=== PATIENT | male | born 1970 | race Caucasian/White ===

== ENCOUNTER 2017-01-15 06:59 | Day surgery (SDC) | payer OTHER ==
[~2017-01-15] VITALS: Ht 177.8 cm; Wt 82.0 kg
[2017-01-15] VITALS (12 sets, daily range): BP systolic 126–147; BP diastolic 83–94; PULSE 66–83; RESP 8–20; Ht 177.8 cm; Wt 82.0 kg
--- NOTE | 2017-01-15 07:21 | HPN ---
Date/Time of Note Date/Time of Note DATE: 01/15/17 TIME: 07:20 Interval H&P Admission Note Pt. seen H&P reviewed: No system changes WILLIE OQUENDO MD Jan 15, 2017 07:21
[2017-01-15] MEDS ORDERED: GLYCOPYRROLATE 0.4 MG INJ ONE (08:12)
[2017-01-15] MEDS ORDERED: DEXAMETHASONE 4 MG/ML 1 ML INJ ONE (08:13)
[2017-01-15] MEDS ORDERED: CEFAZOLIN 1 GM INJ ONE (08:13)
[2017-01-15] MEDS ORDERED: NEOSTIGMINE 3 MG/3 ML SYRINGE ONE (08:13)
[2017-01-15] MEDS ORDERED: MIDAZOLAM 1 MG/ML 2 ML INJ ONE (08:13)
[2017-01-15] MEDS ORDERED: ROCURONIUM 50 MG INJ ONE (08:13)
[2017-01-15] MEDS ORDERED: ONDANSETRON 4 MG INJ ONE (08:13)
[2017-01-15] MEDS ORDERED: FENTAnyl 50 MCG/ML VIAL ONE ×2 (08:13→09:31)
[2017-01-15] MEDS ORDERED: PROPOFOL 20 ML ONE (08:13)
[2017-01-15] MEDS ORDERED: BUPIVACAINE 0.5%/EPI (SDV) 30 ML INJ INJ ONE (09:00)
[2017-01-15] MEDS ORDERED: POLYMYXIN/BACITRACIN 1L IRRIG IRR ONE (09:00)
[2017-01-15] MEDS ORDERED: BUPIVACAINE 0.5%/EPI (SDV) 30 ML INJ ONE (09:02)
[2017-01-15] MEDS ORDERED: POLYMYXIN/BACITRACIN 1L IRRIG ONE (09:02)
[2017-01-15] MEDS ORDERED: BUPIVACAINE 0.25% (MPF) 30 ML INJ ONE (09:25)
[2017-01-15] MEDS ORDERED: EPHEDrine SULFATE 50 MG/5 ML SYG IV PRN (09:30)
[2017-01-15] MEDS ORDERED: MEPERIDINE 25 MG INJ IV PRN (09:30)
[2017-01-15] MEDS ORDERED: HYDROmorphONE (0.2 MG/ML) 10ML SYG IV PRN ×3 (09:30)
[2017-01-15] MEDS ORDERED: TRIMETHOBENZAMIDE 100 MG/ML VIAL IM PRN (09:30)
[2017-01-15] MEDS ORDERED: FENTAnyl 50 MCG/ML VIAL IV PRN ×3 (09:30)
[2017-01-15] MEDS ORDERED: DIPHENHYDRAMINE 50 MG INJ IV PRN (09:30)
[2017-01-15] MEDS ORDERED: ONDANSETRON 4 MG INJ IV PRN ×2 (09:30→10:30)
[2017-01-15] MEDS ORDERED: OXYCODONE/ACETAMINOPHEN (5/325) TAB PO PRN ×4 (09:30→10:30)
[2017-01-15] MEDS ORDERED: MIDAZOLAM 1 MG/ML 2 ML INJ IV PRN (09:30)
[2017-01-15] MEDS ORDERED: IPRATROPIUM (NEB) 0.5 MG/2.5 ML AMP HHN PRN (09:30)
[2017-01-15] MEDS ORDERED: LABETALOL HCL 20MG INJ IV PRN (09:30)
[2017-01-15] MEDS ORDERED: hydrALAzine 20 MG INJ IV PRN (09:30)
[2017-01-15] MEDS ORDERED: ALBUTEROL 0.083% (NEB) 2.5 MG/3 ML AMP HHN PRN (09:30)
[2017-01-15] MEDS ORDERED: SUGAMMADEX SODIUM 200 MG/2 ML VIAL IV ONE (10:12)
--- NOTE | 2017-01-15 10:17 | OPR ---
Date/Time of Note Date/Time of Note DATE: 01/15/17 TIME: 10:10 Operative Report Procedure Date: Jan 15, 2017 Preoperative Diagnosis 1. Right inguinal hernia without obstruction 2. Rectal polyp Postoperative Diagnosis 1. Right inguinal hernia (indirect) 2. Rectal polyp predominantly prolapsed internal hemorrhoid disease (pathology pending) Operation/Procedure Performed 1. Repair right inguinal hernia with extra large plug 2. Rectal polypectomy 3. Right inguinal nerve block Surgeon Willie Oquendo MD Diffusion Operator None Anesthesia Type: general Anesthesiologist: Suresh Chaudhry M.D. Estimated Blood Loss: 0 - 10 ml's Transfusion none Specimen Rectal polyp Grafts/Implants Extra large Bard PerFix plug Tubes/Drains None Complications none Pt Condition Post Procedure: stable Disposition: PACU Indications Symptoms Procedure Description After satisfactory general anesthesia was achieved, the patient was placed in Bari stirrups and the perineum was prepped and draped. Examination under anesthesia revealed large circumferential external hemorrhoids. The rectal polyp was in fact a prolapsed large cluster of internal hemorrhoids. This prolapsed cluster was divided over an impact LigaSure. Hemostasis was total. The abdomen was then prepped and draped after the Bari stirrups were lowered. A 4 cm transverse suprapubic right groin incision was made and carried down to the level of the external oblique aponeurosis which was opened in the direction of its fibers. The cord and nerve were retracted. There was a large indirect sac which was dissected to its base at the internal ring. The sac was reduced. The reduction was maintained by placement of an extra-large plug secured circumferentially to healthy tissue with interrupted 3-0 Vicryl suture. Next the flat portion of the mesh was cut and fashioned to fit in the floor of the canal as an overlay. It was anchored at the pubic tubercle with 2-0 Novafil, laterally to inguinal ligament with interrupted 2-0 Novafil, and medially to conjoined tendon with interrupted 2-0 Novafil. The mesh distal to the cord was reconstituted with a single suture of 2-0 Novafil creating a new internal ring of appropriate size. Cord and nerve were then replaced beneath the external oblique which was closed with a running 3-0 Vicryl suture. Next the right inguinal nerve block was performed. 10 cc of 0.5% plain Marcaine were injected into the fascia 1 cm medial and inferior to the right anterior iliac spine. 10 more cc of local anesthetic were injected into the subcutaneous tissues. Essence 's fascia was closed with interrupted 3-0 Vicryl suture, and skin closed with subcuticular absorbable radha. Sponge and needle counts were reported as correct 2. WILLIE OQUENDO MD Jan 15, 2017 10:17
[2017-01-15] MEDS ORDERED: morphine 2 MG INJ IV PRN (10:30)
[2017-01-15] MEDS ORDERED: METOCLOPRAMIDE 10 MG INJ ONE (10:45)
[2017-01-15] MEDS ORDERED: METOCLOPRAMIDE 10 MG INJ IV PRN (11:00)
== END 2017-01-15 12:55 | disposition home or self-care (01) ==
LOC: SUR 06:59 → SDS 06:59 → SUR 12:55
PROVIDERS: ATTEND Surgery
DX: K40.90 Unilateral inguinal hernia, without obstruction or gangrene, not specified as recurrent (principal); K64.8 Other hemorrhoids; K64.4 Residual hemorrhoidal skin tags
CPT/HCPCS: 46255; 49505; 88305; C1781; J0690; J1100; J1170; J1200; J2175; J2250; J2405; J2765; J3010; Z7512; Z7610; J2710

== ENCOUNTER 2017-01-22 15:38 | Inpatient (IN) | payer OTHER ==
[~2017-01-22] VITALS: Ht 170.2 cm; Wt 79.0 kg
--- NOTE | 2017-01-22 16:50 | ERD ---
ER Documentation Chief Complaint Date/Time DATE: 01/22/17 TIME: 16:42 Chief Complaint rectal pain HPI This 46-year-old male patient presents to emergency department for evaluation of rectal pain. Patient reports that he had right hernia repair and polyp surgery 01/15/17, developed hemorrhoids with pain for the last 5 days, pt saw Dr Sarah Crocker [phone] today told to ED for admitting surgery tomorrow ROS All systems reviewed and are negative except as per history of present illness. Medications Home Meds No Active Prescriptions or Reported Meds Allergies Allergies: Coded Allergies: No Known Allergy (Unverified , 01/22/17) PMhx/Soc History of Surgery: Yes (CARDIAC STENT, RT INGUINAL HERNIA REPAIR, HEMORRHOIDECTOMY 01/15) Anesthesia Reaction: No Hx Neurological Disorder: No Hx Respiratory Disorders: No Hx Cardiac Disorders: Yes (HTN, CARDIAC STENT ) Hx Psychiatric Problems: No Hx Miscellaneous Medical Probl: No Hx Alcohol Use: No Hx Substance Use: No Hx Tobacco Use: Yes (10-12 CIG A DAY ) Smoking Status: Current every day smoker Physical Exam Vitals Vital Signs Date Time Temp Pulse Resp B/P Pulse Ox O2 Delivery O2 Flow Rate FiO2 01/22/17 15:43 98.4 84 19 120/81 98 Physical Exam Const: Well-nourished well-appearing well-hydrated Head: Atraumatic Eyes: Normal Conjunctiva ENT: Normal External Ears, Nose and Mouth. Neck: Full range of motion..~ No meningismus. Resp: Clear to auscultation bilaterally Cardio: Regular rate and rhythm, no murmurs Abd: Soft, non tender, non distended. Normal bowel sounds Skin: No petechiae or rashes Back: No midline or flank tenderness Ext: No cyanosis, or edema Neur: Awake and alert Psych: Normal Mood and Affect Result Diagram: 01/22/17 1700 01/22/17 1700 Results 24 hrs Laboratory Tests Test 01/22/17 17:00 01/22/17 18:40 White Blood Count 11.210^3/ul Red Blood Count 5.4110^6/ul Hemoglobin 16.3g/dl Hematocrit 47.1% Mean Corpuscular Volume 87.1fl Mean Corpuscular Hemoglobin 30.1pg Mean Corpuscular Hemoglobin Concent 34.6g/dl Red Cell Distribution Width 12.3% Platelet Count 80891^3/UL Mean Platelet Volume 10.5fl Neutrophils % 57.9% Lymphocytes % 31.6% Monocytes % 8.8% Eosinophils % 1.0% Basophils % 0.4% Nucleated Red Blood Cells % 0.0/100WBC Neutrophils # 6.510^3/ul Lymphocytes # 3.510^3/ul Monocytes # 1.010^3/ul Eosinophils # 0.110^3/ul Basophils # 0.110^3/ul Nucleated Red Blood Cells # 0.010^3/ul Sodium Level 140mmol/L Potassium Level 4.4mmol/L Chloride Level 103mmol/L Carbon Dioxide Level 24mmol/L Anion Gap 17 Blood Urea Nitrogen 9mg/dl Creatinine 1.03mg/dl Glucose Level 97mg/dl Calcium Level 10.2mg/dl Total Bilirubin 0.6mg/dl Direct Bilirubin 0.00mg/dl Indirect Bilirubin 0.6mg/dl Aspartate Amino Transf (AST/SGOT) 24IU/L Alanine Aminotransferase (ALT/SGPT) 31IU/L Alkaline Phosphatase 77IU/L Total Protein 8.1g/dl Albumin 4.6g/dl Globulin 3.50g/dl Albumin/Globulin Ratio 1.31 Lipase 87U/L Prothrombin Time 13.7Sec Prothrombin Time Ratio 1.1 INR International Normalized Ratio 1.05 Activated Partial Thromboplast Time 31.1Sec Current Medications Medications (Trade) Dose Ordered Sig/Sis Route PRN Reason Start Time Stop Time Status Last Admin Dose Admin Oxycodone/ Acetaminophen 1 tab 1 tab ONCE ONCE PO 01/22/17 17:00 01/22/17 17:55 DC Sodium Chloride (NS) 1,000 ml @ 1,000 mls/hr Q1H ONCE IV 01/22/17 17:30 01/22/17 18:29 DC 01/22/17 17:58 Lidocaine HCl ([place] 3.5% Gel Drops) 1 applic ONCE ONCE OPER 01/22/17 17:30 01/22/17 17:31 DC Morphine Sulfate (morphine) 4 mg ONCE STAT IV 01/22/17 17:54 01/22/17 17:55 DC 01/22/17 17:58 Ondansetron HCl (Zofran Inj) 4 mg ONCE STAT IV 01/22/17 17:54 01/22/17 17:55 DC 01/22/17 17:58 Ondansetron HCl (Zofran Inj) 4 mg STK-MED ONCE .ROUTE 01/22/17 17:56 01/22/17 17:57 DC Morphine Sulfate (morphine) 4 mg STK-MED ONCE .ROUTE 01/22/17 17:56 01/22/17 17:57 DC Interpretation text CBC shows no evidence of hemorrhage or infection Chemistry shows no evidence of significant electrolyte abnormalities or renal insufficiency Liver function tests shows no evidence of acute biliary or hepatic dysfunction Coagulation study showed no concerning coagulpathy Lipase shows no evidence of acute pancreatitis Procedures/MDM 46-year-old male patient presents to emergency department for admission, plan for hemorrhoidectomy tomorrow by Dr Sarah Crocker. Patient is status post a right inguinal hernia repair and polyp removal, polyp removal exacerbated hemorrhoid symptoms. Patient now has severe grade 4. Emergency room course today includes routine labs, IV with a liter of normal saline, pain control with a set, change to 4 of IV morphine with Zofran. Dr. Crocker called by myself to discuss case, have patient admitted by hospitalist, Dr. Crocker will consult, patient is on surgery schedule for tomorrow time unverified at this point. This case discussed with supervising physician Dr. Machado who puts in the ER physician. Patient remains in ED 2 for care and treatment until transfer to floor. 2229 pain controllable with 4 mg of IV morphine, patient transferred to [facility] bed, all care maintained. Departure Diagnosis: Primary Impression: Hemorrhoid prolapse ARBEN DICKSON Jan 22, 2017 16:50 (Xylocaine 2% Jelly) 1 applic ONCE ONCE TOP 01/22/17 20:30 01/22/17 20:31 DC 01/22/17 20:15 Interpretation text CBC shows no evidence of hemorrhage or infection Chemistry shows no evidence of significant electrolyte abnormalities or renal insufficiency Liver function tests shows no evidence of acute biliary or hepatic dysfunction Coagulation study showed no concerning coagulpathy Lipase shows no evidence of acute pancreatitis Procedures/MDM 46-year-old male patient presents to emergency department for admission, plan for hemorrhoidectomy tomorrow by Dr Sarah Crocker. Patient is status post a right inguinal hernia repair and polyp removal, polyp removal exacerbated hemorrhoid symptoms. Patient now has severe grade 4. Emergency room course today includes routine labs, IV with a liter of normal saline, pain control with a set, change to 4 of IV morphine with Zofran. Dr. Crocker called by myself to discuss case, have patient admitted by hospitalist, Dr. Crocker will consult, patient is on surgery schedule for tomorrow time unverified at this point. This case discussed with supervising physician Dr. Machado who puts in the ER physician. Patient remains in ED 2 for care and treatment until transfer to floor. Departure Diagnosis: Primary Impression: Hemorrhoid prolapse ARBEN DICKSON Jan 22, 2017 16:50
[2017-01-22] MEDS ORDERED: OXYCODONE/ACETAMINOPHEN (5/325) TAB PO ONE (17:00)
[2017-01-22 17:17] LABS: BASOPHIL # 0.1 10^3/ul (0.0-0.1); BASOPHILS % 0.4 % (0.0-2.0); EOSINOPHILS # 0.1 10^3/ul (0.0-0.5); HEMATOCRIT 47.1 % (42.0-52.0); HEMOGLOBIN 16.3 g/dl (14.0-18.0); LYMPHOCYTES # 3.5 10^3/ul (0.8-2.9); LYMPHOCYTES % 31.6 % (15.0-51.0); MEAN CORPUSCULAR HEMOGLOBIN 30.1 pg (29.0-33.0); MEAN CORPUSCULAR HGB CONC 34.6 g/dl (32.0-37.0); MEAN CORPUSCULAR VOLUME 87.1 fl (82.0-101.0); MEAN PLATELET VOLUME 10.5 fl (7.4-10.4); MONOCYTES % 8.8 % (0.0-11.0); NEUTROPHIL # 6.5 10^3/ul (1.6-7.5); NEUTROPHILS % 57.9 % (39.0-77.0); PLATELET COUNT 244 10^3/UL (140-415); RED BLOOD COUNT 5.41 10^6/ul (4.70-6.10); RED CELL DISTRIBUTION WIDTH 12.3 % (11.5-14.5); WHITE BLOOD COUNT 11.2 10^3/ul (4.8-10.8)
[2017-01-22] MEDS ORDERED: LIDOCAINE 3.5% GEL TUBE OPER ONE (17:30)
[2017-01-22] MEDS ORDERED: SOD CHLORIDE 0.9% 1,000 ML IV ONE (17:30)
[2017-01-22] MEDS ORDERED: morphine 4 MG/ML VIAL IV STA ×2 (17:54→20:04)
[2017-01-22] MEDS ORDERED: ONDANSETRON 4 MG INJ IV STA (17:54)
[2017-01-22 17:55] LABS: ALBUMIN 4.6 g/dl (3.3-4.9); ALBUMIN/GLOBULIN RATIO 1.31; BILIRUBIN,INDIRECT 0.6 mg/dl (0-1.1); BILIRUBIN,TOTAL 0.6 mg/dl (0.2-1.3); CALCIUM 10.2 mg/dl (8.4-10.2); CREATININE 1.03 mg/dl (0.61-1.24); POTASSIUM 4.4 mmol/L (3.5-5.1); TOTAL PROTEIN 8.1 g/dl (6.1-8.1)
[2017-01-22] MEDS ORDERED: ONDANSETRON 4 MG INJ ONE (17:56)
[2017-01-22] MEDS ORDERED: morphine 4 MG/ML VIAL ONE (17:56)
[2017-01-22 19:10] LABS: INR 1.05; PROTIME 13.7 Sec (12.2-14.2); PT RATIO 1.1
[2017-01-22 19:11] LABS: PARTIAL THROMBOPLASTIN TIME 31.1 Sec (25.0-35.0)
[2017-01-22] MEDS ORDERED: ACETAMINOPHEN 325 MG TAB PO PRN (20:00)
[2017-01-22] MEDS ORDERED: ONDANSETRON 4 MG INJ IV PRN (20:00)
[2017-01-22] MEDS ORDERED: DIBUCAINE 1% 30 GM OINT TOP ONE (20:00)
[2017-01-22] MEDS ORDERED: LIDOCAINE 2% JELLY 5 ML TOP ONE (20:30)
[2017-01-22 22:22] VITALS: TEMP 98
[2017-01-22] MEDS: morphine 4 MG/ML VIAL IV PRN (23:49)
[2017-01-22] MEDS: DEXTROSE 5%-0.45% NACL 1,000 ML IV SCH (23:49)
[2017-01-23] VITALS (18 sets, daily range): BP systolic 125–153; BP diastolic 70–94; PULSE 62–82; RESP 14–20; Ht 170.2 cm; Wt 79.0 kg
[2017-01-23] MEDS: morphine 4 MG/ML VIAL IV PRN ×5 (04:17→21:41)
--- NOTE | 2017-01-23 06:31 | HP ---
Date/Time of Note Date/Time of Note DATE: 01/23/17 TIME: 06:24 Assessment/Plan VTE Prophylaxis VTE Prophylaxis Intervention: SCD's Lines/Catheters IV Catheter Type (from Nrs): Peripheral IV Urinary Cath still in place: No Assessment/Plan Assessment/Plan 1. Rectal pain, most likely secondary to hemorrhoids -Awaiting surgical evaluation in-house -Pain management 2. Recent right inguinal hernia repair and Rectal polypectomy on 01/15/17 -This seems to be no complication 3. Mild leukocytosis -Likely reactive -Monitor for now HPI/ROS Admit Date/Time Admit Date/Time Jan 22, 2017 at 19:48 Hx of Present Illness This is a 46-year-old male who had Repair of right inguinal hernia and Rectal polypectomy on 01/15/[address] Crocker now he has been having rectal pain and hemorrhoids. He was sent by Dr. Crocker ER for evaluation and admission. He said he has been having rectal pain for the past 5 days. Denied chest pain, shortness of breath, fever, chills, nausea vomiting. PMH/Family/Social Social History Smoking Status: Current some day smoker Exam/Review of Systems Vital Signs Vitals Vital Signs Date Time Temp Pulse Resp B/P Pulse Ox O2 Delivery O2 Flow Rate FiO2 01/23/17 00:43 98.2 82 18 132/86 99 Room Air Intake and Output 01/22/17 01/22/17 01/23/17 15:00 23:00 07:00 Intake Total 600 ml Balance 600 ml Exam Constitutional: alert, oriented, well developed Head: atraumatic, normocephalic Eyes: EOMI, PERRL Respiratory: clear to auscultation, normal air movement Cardiovascular: nl pulses, regular rate and rhythm Gastrointestinal: soft, surgical scars Extremities: normal pulses Labs Result Diagram: 01/22/17 1700 01/22/17 1700 Medications Medications Current Medications Dextrose/Sodium Chloride (D5-1/2ns) 1,000 ml @ 100 mls/hr Q10H IV Last administered on 01/22/17 23:49; Admin Dose 100 MLS/HR; Start 01/22/17 at 23: 30; Stop 01/23/17 at 23:30 Morphine Sulfate (morphine) 4 mg Q4H PRN IV pain Last administered on 10/13/ 17at 04:17; Admin Dose 4 MG; Start 01/22/17 at 23:30; Stop 01/26/17 at 23:30 HERBERT BELLAMY MD Jan 23, 2017 06:31
[2017-01-23] MEDS ORDERED: PROPOFOL 200 MG INJ ONE (07:00)
[2017-01-23 07:11] LABS: BASOPHILS % 0.5 % (0.0-2.0); EOSINOPHILS # 0.2 10^3/ul (0.0-0.5); EOSINOPHILS % 1.9 % (0.0-7.0); HEMATOCRIT 43.2 % (42.0-52.0); HEMOGLOBIN 14.5 g/dl (14.0-18.0); LYMPHOCYTES # 2.8 10^3/ul (0.8-2.9); LYMPHOCYTES % 34.2 % (15.0-51.0); MEAN CORPUSCULAR HGB CONC 33.6 g/dl (32.0-37.0); MEAN CORPUSCULAR VOLUME 89.4 fl (82.0-101.0); MEAN PLATELET VOLUME 10.7 fl (7.4-10.4); MONOCYTE # 0.7 10^3/ul (0.3-0.9); MONOCYTES % 8.2 % (0.0-11.0); NEUTROPHIL # 4.5 10^3/ul (1.6-7.5); PLATELET COUNT 195 10^3/UL (140-415); RED BLOOD COUNT 4.83 10^6/ul (4.70-6.10); RED CELL DISTRIBUTION WIDTH 12.5 % (11.5-14.5); WHITE BLOOD COUNT 8.1 10^3/ul (4.8-10.8)
[2017-01-23 07:40] LABS: ALBUMIN 3.6 g/dl (3.3-4.9); ALBUMIN/GLOBULIN RATIO 1.2; BILIRUBIN,INDIRECT 0.3 mg/dl (0-1.1); BILIRUBIN,TOTAL 0.3 mg/dl (0.2-1.3); CREATININE 0.91 mg/dl (0.61-1.24); POTASSIUM 4.2 mmol/L (3.5-5.1); TOTAL PROTEIN 6.6 g/dl (6.1-8.1)
--- NOTE | 2017-01-23 09:51 | CONS ---
Date/Time of Note Date/Time of Note DATE: 01/23/17 TIME: 09:47 Assessment/Plan Assessment/Plan Additional Assessment/Plan Circumferential thrombosis external hemorrhoids Plan: Patient will require urgent total hemorrhoidectomy. The procedure and risks have been outlined to the patient. The patient is anxious to proceed as he is quite symptomatic. Consultation Date/Type/Reason Admit Date/Time Jan 22, 2017 at 19:48 Initial Consult Date January 18, 2017 Reason for Consultation Circumferential hemorrhoidal thrombosis 24 HR Interval Summary Free Text/Dictation The patient is 8 days status post outpatient right inguinal hernia and rectal polypectomy. Postoperatively the patient developed increasing rectal pain. He was seen in our offices yesterday where he was noted to have a circumferential thrombosis of external hemorrhoids. His pain severe and refractory to outpatient measures. The patient is admitted for urgent hemorrhoidectomy Exam/Review of Systems Vital Signs Vitals Vital Signs Date Time Temp Pulse Resp B/P Pulse Ox O2 Delivery O2 Flow Rate FiO2 01/23/17 07:39 98.3 69 18 125/80 99 Room Air Intake and Output 01/22/17 01/22/17 01/23/17 15:00 23:00 07:00 Intake Total 600 ml Balance 600 ml Exam Constitutional: alert, oriented Psych: no complaints Head: normocephalic ENMT: nl external ears & nose Neck: supple Respiratory: clear to auscultation Cardiovascular: regular rate and rhythm Gastrointestinal: soft Genitourinary - Male: nl penis, nl scrotum, other (Circumferential thrombosis and edema of external hemorrhoids) Extremities: normal pulses Neurological: CONTRACTS DIRECTOR II-XII intact Skin: nl turgor Lymph: nl lymph nodes Results Result Diagram: 01/23/17 0636 01/23/17 0633 Results 24 hrs Laboratory Tests Test 01/22/17 17:00 01/22/17 18:40 01/23/17 06:33 01/23/17 06:36 White Blood Count 11.2 H 8.1 # Red Blood Count 5.41 4.83 Hemoglobin 16.3 14.5 Hematocrit 47.1 43.2 Mean Corpuscular Volume 87.1 89.4 Mean Corpuscular Hemoglobin 30.1 30.0 Mean Corpuscular Hemoglobin Concent 34.6 33.6 Red Cell Distribution Width 12.3 12.5 Platelet Count 244 195 # Mean Platelet Volume 10.5 H 10.7 H Neutrophils % 57.9 55.0 Lymphocytes % 31.6 34.2 Monocytes % 8.8 8.2 Eosinophils % 1.0 1.9 Basophils % 0.4 0.5 Nucleated Red Blood Cells % 0.0 0.0 Neutrophils # 6.5 4.5 Lymphocytes # 3.5 H 2.8 Monocytes # 1.0 H 0.7 Eosinophils # 0.1 0.2 Basophils # 0.1 0.0 Nucleated Red Blood Cells # 0.0 0.0 Sodium Level 140 141 Potassium Level 4.4 4.2 Chloride Level 103 108 Carbon Dioxide Level 24 25 Anion Gap 17 H 12 Blood Urea Nitrogen 9 11 Creatinine 1.03 0.91 Glucose Level 97 111 Calcium Level 10.2 9.0 Total Bilirubin 0.6 0.3 Direct Bilirubin 0.00 0.00 Indirect Bilirubin 0.6 0.3 Aspartate Amino Transf (AST/SGOT) 24 18 Alanine Aminotransferase (ALT/SGPT) 31 30 Alkaline Phosphatase 77 60 Total Protein 8.1 6.6 # Albumin 4.6 3.6 # Globulin 3.50 H 3.00 Albumin/Globulin Ratio 1.31 1.20 Lipase 87 Prothrombin Time 13.7 Prothrombin Time Ratio 1.1 INR International Normalized Ratio 1.05 Activated Partial Thromboplast Time 31.1 Medications Medications Current Medications Dextrose/Sodium Chloride (D5-1/2ns) 1,000 ml @ 100 mls/hr Q10H IV Last administered on 01/22/17 23:49; Admin Dose 100 MLS/HR; Start 01/22/17 at 23: 30; Stop 01/23/17 at 23:30 Morphine Sulfate (morphine) 4 mg Q4H PRN IV pain Last administered on 08:22; Admin Dose 4 MG; Start 01/22/17 at 23:30; Stop 01/26/17 at 23:30 WILLIE OQUENDO MD Jan 23, 2017 09:51
[2017-01-23] MEDS: DEXTROSE 5%-0.45% NACL 1,000 ML IV SCH ×3 (09:56→19:30)
[2017-01-23] MEDS ORDERED: HYDROmorphONE (0.2 MG/ML) 10ML SYG IV PRN ×3 (10:30)
[2017-01-23] MEDS ORDERED: MEPERIDINE 25 MG INJ IV PRN (10:30)
[2017-01-23] MEDS ORDERED: FENTAnyl 50 MCG/ML VIAL IV PRN ×2 (10:30)
[2017-01-23] MEDS ORDERED: DIPHENHYDRAMINE 50 MG INJ IV PRN (10:30)
[2017-01-23] MEDS ORDERED: BUPIVACAINE 0.5%/EPI (SDV) 30 ML INJ ONE (10:51)
[2017-01-23] MEDS ORDERED: FENTAnyl 50 MCG/ML VIAL ONE (10:58)
[2017-01-23] MEDS ORDERED: ROCURONIUM 50 MG INJ ONE (11:10)
[2017-01-23] MEDS ORDERED: LIDOCAINE 2% (SDV) 5 ML INJ ONE (11:10)
[2017-01-23] MEDS ORDERED: SUCCINYLCHOLINE CHLORIDE 100 MG/5 ML SYG IV ONE (11:10)
[2017-01-23] MEDS ORDERED: SUGAMMADEX SODIUM 200 MG/2 ML VIAL IV ONE (11:10)
[2017-01-23] MEDS ORDERED: CEFAZOLIN 1 GM INJ ONE (11:10)
--- NOTE | 2017-01-23 11:42 | OPR ---
Date/Time of Note Date/Time of Note DATE: 01/23/17 TIME: 11:38 Operative Report Procedure Date: Jan 23, 2017 Preoperative Diagnosis Thrombosed external hemorrhoids Postoperative Diagnosis Thrombosed external hemorrhoids Operation/Procedure Performed Total external hemorrhoidectomy Surgeon Willie Oquendo MD Electrical Control Assembler None Anesthesia Type: general Anesthesiologist: ROXIE ANN Estimated Blood Loss: 0 - 10 ml's Transfusion none Specimen 3 clusters of external hemorrhoids, 9:00 5:00 and 2:00 Grafts/Implants none Tubes/Drains None Complications none Pt Condition Post Procedure: stable Disposition: PACU Indications Intractable pain Procedure Description After satisfactory general anesthesia was achieved. The patient was placed in Bari stirrups. In the perianal area clipped prepped and draped. There were 3 clusters of external hemorrhoids. The largest measured 4 cm and was partially gangrenous. It was at 9:00. This was removed and resected over impact LigaSure. In an identical fashion the external hemorrhoid at 5:00 and 2: 00 were excised. Hemostasis was total. The wound was infiltrated with 30 cc of 0.5% Marcaine with epinephrine. A Vaseline packing was applied. Sponge and needle counts were reported as correct 2. WILLIE OQUENDO MD Jan 23, 2017 11:42
[2017-01-23] MEDS ORDERED: OXYCODONE/ACETAMINOPHEN (5/325) TAB PO PRN (12:00)
[2017-01-23] MEDS ORDERED: morphine 2 MG INJ IV PRN (12:00)
[2017-01-23] MEDS: BISACODYL (EC) 5 MG TAB PO ONE ×2 (12:00→15:05)
[2017-01-23] MEDS ORDERED: ONDANSETRON 4 MG INJ IV PRN (12:00)
[2017-01-23] MEDS: OXYCODONE/ACETAMINOPHEN (5/325) TAB PO PRN ×3 (14:57→23:10)
[2017-01-23] MEDS: CEFAZOLIN 1 GM/50 ML (PMX) 50 ML IVPB SCH ×2 (15:05→21:47)
--- NOTE | 2017-01-23 15:48 | PN ---
Date/Time of Note Date/Time of Note DATE: 01/23/17 TIME: 15:43 Assessment/Plan VTE Prophylaxis VTE Prophylaxis Intervention: SCD's Lines/Catheters IV Catheter Type (from Nrsg): Peripheral IV Urinary Cath still in place: No Assessment/Plan Assessment/Plan 1. Thrombosed external hemorrhoids, s/p resection, stable, pain management Subjective 24 Hr Interval Summary Free Text/Dictation pain at anus Exam/Review of Systems Vital Signs Vitals Vital Signs Date Time Temp Pulse Resp B/P Pulse Ox O2 Delivery O2 Flow Rate FiO2 01/23/17 14:15 97.8 69 19 132/77 96 Room Air 01/23/17 12:54 2.0 Intake and Output 01/22/17 01/22/17 01/23/17 15:00 23:00 07:00 Intake Total 600 ml Balance 600 ml Exam Constitutional: alert, oriented, well developed Psych: nl mood/affect, no complaints Head: atraumatic, normocephalic Eyes: EOMI, PERRL, nl conjunctiva, nl lids, nl sclera ENMT: nl external ears & nose, nl lips & teeth, nl nasal mucosa & septum Neck: non-tender, supple Respiratory: clear to auscultation, normal air movement, No congested cough, No crackles/rales, No diminished breath sounds, No intercostal retraction, No labored breathing, No other, No respirations, No tactile fremitus, No wheezing Cardiovascular: nl pulses, regular rate and rhythm, No S3, No S4, No bruits, No diastolic murmur, No edema, No gallop, No irregular rhythm, No jugular venous distention (JVD), No murmurs/extra sounds, No other, No rub, No systolic murmur Gastrointestinal: nl liver, spleen, non-tender, soft Musculoskeletal: nl extremities to inspection Extremities: normal pulses, No calf tenderness, No clubbing, No cyanosis, No edema, No other, No palpable cord, No pitting pedal edema, No tenderness Neurological: GUM PULLER II-XII intact, nl mental status, nl speech, nl strength Skin: nl turgor Lymph: nl lymph nodes Results Result Diagram: 01/23/17 0636 01/23/17 0633 Results 24 hrs Laboratory Tests Test 01/22/17 17:00 01/22/17 18:40 01/23/17 06:33 01/23/17 06:36 White Blood Count 11.2 H 8.1 # Red Blood Count 5.41 4.83 Hemoglobin 16.3 14.5 Hematocrit 47.1 43.2 Mean Corpuscular Volume 87.1 89.4 Mean Corpuscular Hemoglobin 30.1 30.0 Mean Corpuscular Hemoglobin Concent 34.6 33.6 Red Cell Distribution Width 12.3 12.5 Platelet Count 244 195 # Mean Platelet Volume 10.5 H 10.7 H Neutrophils % 57.9 55.0 Lymphocytes % 31.6 34.2 Monocytes % 8.8 8.2 Eosinophils % 1.0 1.9 Basophils % 0.4 0.5 Nucleated Red Blood Cells % 0.0 0.0 Neutrophils # 6.5 4.5 Lymphocytes # 3.5 H 2.8 Monocytes # 1.0 H 0.7 Eosinophils # 0.1 0.2 Basophils # 0.1 0.0 Nucleated Red Blood Cells # 0.0 0.0 Sodium Level 140 141 Potassium Level 4.4 4.2 Chloride Level 103 108 Carbon Dioxide Level 24 25 Anion Gap 17 H 12 Blood Urea Nitrogen 9 11 Creatinine 1.03 0.91 Glucose Level 97 111 Calcium Level 10.2 9.0 Total Bilirubin 0.6 0.3 Direct Bilirubin 0.00 0.00 Indirect Bilirubin 0.6 0.3 Aspartate Amino Transf (AST/SGOT) 24 18 Alanine Aminotransferase (ALT/SGPT) 31 30 Alkaline Phosphatase 77 60 Total Protein 8.1 6.6 # Albumin 4.6 3.6 # Globulin 3.50 H 3.00 Albumin/Globulin Ratio 1.31 1.20 Lipase 87 Prothrombin Time 13.7 Prothrombin Time Ratio 1.1 INR International Normalized Ratio 1.05 Activated Partial Thromboplast Time 31.1 Medications Medications Current Medications Dextrose/Sodium Chloride (D5-1/2ns) 1,000 ml @ 100 mls/hr Q10H IV Last administered on 01/23/17 14:09; Admin Dose 100 MLS/HR; Start 01/22/17 at 23: 30; Stop 01/23/17 at 23:30 Morphine Sulfate (morphine) 4 mg Q4H PRN IV pain Last administered on 13:28; Admin Dose 4 MG; Start 01/22/17 at 23:30; Stop 01/26/17 at 23:30 Oxycodone/ Acetaminophen (Percocet (5/ 325)) 1 tab Q4H PRN PO MILD PAIN (1-3); Start 01/23/17 at 12:00 Oxycodone/ Acetaminophen (Percocet (5/ 325)) 2 tab Q4H PRN PO MODERATE PAIN (4- 6) Last administered on 01/23/17 14:57; Admin Dose 2 TAB; Start 01/23/17 at 12:00 Morphine Sulfate (morphine) 2 mg ONCE PRN IV SEVERE PAIN LEVEL 7-10; Start at 12:00; Stop 01/23/17 at 22:22 Ondansetron HCl 4 mg 4 mg Q6H PRN IV NAUSEA Last administered on 01/23/17 12: 53; Admin Dose 4 MG; Start 01/23/17 at 12:00 Cefazolin Sodium (Ancef 1 Gm/50 ml (Pmx)) 50 ml @ 100 mls/hr Q8 IVPB Last administered on 01/23/17 15:05; Admin Dose 100 MLS/HR; Start 01/23/17 at 14: 00 JUAN YOON MD Jan 23, 2017 15:48
[2017-01-23] MEDS ORDERED: BISACODYL (EC) 5 MG TAB PO ONE (18:00)
[2017-01-24 02:00] VITALS: BP 128/89; RESP 20
[2017-01-24] MEDS: morphine 4 MG/ML VIAL IV PRN ×3 (02:00→10:46)
[2017-01-24] MEDS: OXYCODONE/ACETAMINOPHEN (5/325) TAB PO PRN ×5 (03:29→21:49)
[2017-01-24] MEDS: CEFAZOLIN 1 GM/50 ML (PMX) 50 ML IVPB SCH (05:57)
[2017-01-24 06:31] LABS: BASOPHILS % 0.4 % (0.0-2.0); EOSINOPHILS # 0.1 10^3/ul (0.0-0.5); EOSINOPHILS % 1.2 % (0.0-7.0); HEMATOCRIT 43.1 % (42.0-52.0); HEMOGLOBIN 14.1 g/dl (14.0-18.0); LYMPHOCYTES # 2.5 10^3/ul (0.8-2.9); LYMPHOCYTES % 25.3 % (15.0-51.0); MEAN CORPUSCULAR HEMOGLOBIN 29.6 pg (29.0-33.0); MEAN CORPUSCULAR HGB CONC 32.7 g/dl (32.0-37.0); MEAN CORPUSCULAR VOLUME 90.4 fl (82.0-101.0); MEAN PLATELET VOLUME 10.7 fl (7.4-10.4); MONOCYTE # 0.8 10^3/ul (0.3-0.9); MONOCYTES % 8.2 % (0.0-11.0); NEUTROPHIL # 6.4 10^3/ul (1.6-7.5); NEUTROPHILS % 64.6 % (39.0-77.0); PLATELET COUNT 193 10^3/UL (140-415); RED BLOOD COUNT 4.77 10^6/ul (4.70-6.10); RED CELL DISTRIBUTION WIDTH 12.6 % (11.5-14.5); WHITE BLOOD COUNT 9.9 10^3/ul (4.8-10.8)
[2017-01-24 07:52] VITALS: BP 127/97; RESP 20
--- NOTE | 2017-01-24 10:56 | PN ---
Date/Time of Note Date/Time of Note DATE: 01/24/17 TIME: 10:55 Assessment/Plan Lines/Catheters IV Catheter Type (from [facility]): Peripheral IV [place] in Place (from Nrs): No Assessment/Plan Assessment/Plan Operative site is clean and healing nicely Cleared for discharge home today Subjective 24 Hr Interval Summary Postoperative day #1 Symptomatically improved Exam/Review of Systems Vital Signs Vitals Vital Signs Date Time Temp Pulse Resp B/P Pulse Ox O2 Delivery O2 Flow Rate FiO2 01/24/17 07:52 98.7 70 20 127/97 99 01/23/17 14:15 Room Air 01/23/17 12:54 2.0 Intake and Output 01/23/17 01/23/17 01/24/17 15:00 23:00 07:00 Intake Total 955 ml 630 ml 1330 ml Output Total 5 ml Balance 950 ml 630 ml 1330 ml Results Result Diagram: 01/24/17 0521 01/23/17 0633 WILLIE OQUENDO MD Jan 24, 2017 10:56
--- NOTE | 2017-01-24 13:44 | PN ---
Date/Time of Note Date/Time of Note DATE: 01/24/17 TIME: 13:40 Assessment/Plan VTE Prophylaxis VTE Prophylaxis Intervention: ambulation, SCD's Lines/Catheters IV Catheter Type (from [facility] Saline Lock Urinary Cath still in place: No Assessment/Plan Chief Complaint/Hosp Course Patient is a 46-year-old male with a past medical history significant for hemorrhoids presented originally for emergent total hemorrhoidectomy status post surgery Assessment and plan Thrombosed external hemorrhoids, status post resection Leukocytosis, resolved Rectal pain Rectal bleeding -Status post resection, cleared from general surgery to discharge -we will hold off on discharge for now as patient's pain is not controlled, will have to observe for bleeding as patient is stating that the hemorrhoid is still bleeding. -Monitor overnight, no episodes of pain, concern is bleeding when patient has a bowel movement, monitor closely -Once assured patient is not at risk of overt bleeding secondary to hemorrhoid resection, will DC home to follow-up with surgery. -Transition to oral pain meds possible Problems: Subjective 24 Hr Interval Summary Free Text/Dictation states still has some bleeding rectally Exam/Review of Systems Vital Signs Vitals Vital Signs Date Time Temp Pulse Resp B/P Pulse Ox O2 Delivery O2 Flow Rate FiO2 01/24/17 07:52 98.7 70 20 127/97 99 01/23/17 14:15 Room Air 01/23/17 12:54 2.0 Intake and Output 01/23/17 01/23/17 01/24/17 15:00 23:00 07:00 Intake Total 955 ml 630 ml 1330 ml Output Total 5 ml Balance 950 ml 630 ml 1330 ml Exam Physical exam General: Patient is laying in bed and answers questions appropriately Mentation: Patient is alert and oriented 4, Head: Normocephalic atraumatic Eyes: EOMI, pupils reactive to light Neck: Supple, nontender, midline Respiratory: Clear to auscultation bilaterally Cardiovascular: regular rate, no obvious murmurs Gastrointestinal: non-tender to palpation, bowel sounds heard. Neurological: Moves all extremities spontaneously Skin: No new skin lesions Results Result Diagram: 01/24/17 0521 01/23/17 0633 Results 24 hrs Laboratory Tests Test 01/24/17 05:21 White Blood Count 9.9 # Red Blood Count 4.77 Hemoglobin 14.1 Hematocrit 43.1 Mean Corpuscular Volume 90.4 Mean Corpuscular Hemoglobin 29.6 Mean Corpuscular Hemoglobin Concent 32.7 Red Cell Distribution Width 12.6 Platelet Count 193 Mean Platelet Volume 10.7 H Neutrophils % 64.6 Lymphocytes % 25.3 Monocytes % 8.2 Eosinophils % 1.2 Basophils % 0.4 Nucleated Red Blood Cells % 0.0 Neutrophils # 6.4 Lymphocytes # 2.5 Monocytes # 0.8 Eosinophils # 0.1 Basophils # 0.0 Nucleated Red Blood Cells # 0.0 Medications Medications Current Medications Oxycodone/ Acetaminophen (Percocet (5/ 325)) 1 tab Q4H PRN PO MILD PAIN (1-3); Start 01/23/17 at 12:00 Oxycodone/ Acetaminophen (Percocet (5/ 325)) 2 tab Q4H PRN PO MODERATE PAIN (4- 6) Last administered on 01/24/17 12:29; Admin Dose 2 TAB; Start 01/23/17 at 12:00 Ondansetron HCl (Zofran Inj) 4 mg Q6H PRN IV NAUSEA Last administered on 12:53; Admin Dose 4 MG; Start 01/23/17 at 12:00 Cephalexin (Keflex) 500 mg Q8 PO ; Start 01/24/17 at 14:00 ANTWON HAMEED Jan 24, 2017 13:44
[2017-01-24 14:21] VITALS: BP 119/63; RESP 20
[2017-01-24] MEDS: CEPHALEXIN 500 MG CAP PO SCH ×2 (15:03→21:48)
[2017-01-24 21:51] VITALS: BP 140/86; PULSE 66; RESP 18
[2017-01-25] MEDS: OXYCODONE/ACETAMINOPHEN (5/325) TAB PO PRN ×3 (01:47→10:15)
[2017-01-25 02:10] VITALS: BP 135/93; PULSE 69; RESP 20
[2017-01-25 06:02] LABS: BASOPHIL # 0.1 10^3/ul (0.0-0.1); BASOPHILS % 0.6 % (0.0-2.0); EOSINOPHILS # 0.1 10^3/ul (0.0-0.5); EOSINOPHILS % 1.5 % (0.0-7.0); HEMOGLOBIN 14.6 g/dl (14.0-18.0); LYMPHOCYTES # 2.6 10^3/ul (0.8-2.9); LYMPHOCYTES % 30.9 % (15.0-51.0); MEAN CORPUSCULAR HEMOGLOBIN 29.7 pg (29.0-33.0); MEAN CORPUSCULAR HGB CONC 33.2 g/dl (32.0-37.0); MEAN CORPUSCULAR VOLUME 89.6 fl (82.0-101.0); MEAN PLATELET VOLUME 10.7 fl (7.4-10.4); MONOCYTE # 0.7 10^3/ul (0.3-0.9); MONOCYTES % 8.4 % (0.0-11.0); NEUTROPHIL # 4.8 10^3/ul (1.6-7.5); NEUTROPHILS % 58.4 % (39.0-77.0); PLATELET COUNT 219 10^3/UL (140-415); RED BLOOD COUNT 4.91 10^6/ul (4.70-6.10); RED CELL DISTRIBUTION WIDTH 12.5 % (11.5-14.5); WHITE BLOOD COUNT 8.3 10^3/ul (4.8-10.8)
[2017-01-25] MEDS: CEPHALEXIN 500 MG CAP PO SCH ×2 (06:04→13:04)
[2017-01-25 06:47] LABS: CALCIUM 9.3 mg/dl (8.4-10.2); CREATININE 0.9 mg/dl (0.61-1.24); MAGNESIUM 1.9 mg/dl (1.7-2.5); PHOSPHORUS 4.6 mg/dl (2.5-4.9)
--- NOTE | 2017-01-25 07:27 | PN ---
Date/Time of Note Date/Time of Note DATE: 01/25/17 TIME: 07:26 Assessment/Plan Lines/Catheters IV Catheter Type (from Nrsg): Saline Lock [place] in Place (from Nrsg): No Assessment/Plan Assessment/Plan Recovering as expected Surgical site with expected swelling Plan: As patient is not getting any IV medications, patient can be discharged with p.o. pain medications and antibiotics Subjective 24 Hr Interval Summary Postoperative day #2 Still with rectal pain as expected Exam/Review of Systems Vital Signs Vitals Vital Signs Date Time Temp Pulse Resp B/P Pulse Ox O2 Delivery O2 Flow Rate FiO2 01/25/17 02:10 98.1 69 20 135/93 98 01/23/17 14:15 Room Air 01/23/17 12:54 2.0 Intake and Output 01/24/17 01/24/17 01/25/17 15:00 23:00 07:00 Intake Total 50 ml 600 ml 800 ml Balance 50 ml 600 ml 800 ml Results Result Diagram: 01/25/17 0519 01/25/17 0519 WILLIE OQUENDO MD Jan 25, 2017 07:27
[2017-01-25 07:35] VITALS: BP 120/72; RESP 19
[2017-01-25] MEDS ORDERED: morphine 4 MG/ML VIAL IV STA (07:56)
--- NOTE | 2017-01-25 10:15 | PDOCDIS ---
Discharge Instructions CONDITION Patient Condition: Stable HOME CARE INSTRUCTIONS: Special Diet: clear FOLLOW UP/APPOINTMENTS Follow-up Plan 1. Take all medications as directed 2. Follow up with Dr. Crocker within 2 weeks ANTWON HAMEED Jan 25, 2017 10:15
[2017-01-25] MEDS ORDERED: OXYC-209 PO (10:16)
[2017-01-25] MEDS ORDERED: CEPH500C PO (10:17)
--- NOTE | 2017-01-25 12:04 | DS ---
Date/Time of Note Date/Time of Note DATE: 01/25/17 TIME: 12:04 Discharge Summary Admission/Discharge Info Admit Date/Time Jan 22, 2017 at 19:48 Discharge Date/Time Patient Condition: Stable Hx of Present Illness This is a 46-year-old male who had Repair of right inguinal hernia and Rectal polypectomy on 01/15/[address] Crocker now he has been having rectal pain and hemorrhoids. He was sent by Dr. Crocker ER for evaluation and admission. He said he has been having rectal pain for the past 5 days. Denied chest pain, shortness of breath, fever, chills, nausea vomiting. Hospital Course Patient is a 46-year-old male with a past medical history significant for hemorrhoids who presented originally for elective emergent total hemorrhoidectomy. Patient was sent to the hospital by his general surgeon, Dr. Crocker, patient is status post resection, and was cleared by surgery to leave on oral antibiotics and oral pain medication. Patient was monitored for hemorrhoidal bleeding and rectal pain, and once patient was tolerating oral pain medication as well as antibiotics, patient will be discharged to follow-up with general surgery within 1 week. Patient is agreeable to plan and will make appointment as soon as possible. Discharge Diagnosis Thrombosed external hemorrhoids, status post resection Leukocytosis, resolved Rectal pain Rectal bleeding Home Meds Active Scripts Cephalexin* (Cephalexin*) 500 Mg Capsule, 500 MG PO Q8 for 10 Days, #10 CAP Prov:ANTWON HAMEED 01/25/17 Oxycodone HCl/Acetaminophen (Percocet 10-325 mg Tablet) 1 Each Tablet, 1 EACH PO Q6 Y for PAIN, #32 TAB Prov:ANTWON HAMEED 01/25/17 Follow-up Plan 1. Take all medications as directed 2. Follow up with Dr. Crocker within 2 weeks Primary Care Provider Not On Staff Doctor Time spent on discharge: > 30 minutes Pending Labs Laboratory Tests Test 01/25/17 05:19 White Blood Count 8.310^3/ul (4.8-10.8) Red Blood Count 4.9110^6/ul (4.70-6.10) Hemoglobin 14.6g/dl (14.0-18.0) Hematocrit 44.0% (42.0-52.0) Mean Corpuscular Volume 89.6fl (82.0-101.0) Mean Corpuscular Hemoglobin 29.7pg (29.0-33.0) Mean Corpuscular Hemoglobin Concent 33.2g/dl (32.0-37.0) Red Cell Distribution Width 12.5% (11.5-14.5) Platelet Count 22555^3/UL (140-415) Mean Platelet Volume 10.7fl (7.4-10.4) Neutrophils % 58.4% (39.0-77.0) Lymphocytes % 30.9% (15.0-51.0) Monocytes % 8.4% (0.0-11.0) Eosinophils % 1.5% (0.0-7.0) Basophils % 0.6% (0.0-2.0) Nucleated Red Blood Cells % 0.0/100WBC (0.0-0.0) Neutrophils # 4.810^3/ul (1.6-7.5) Lymphocytes # 2.610^3/ul (0.8-2.9) Monocytes # 0.710^3/ul (0.3-0.9) Eosinophils # 0.110^3/ul (0.0-0.5) Basophils # 0.110^3/ul (0.0-0.1) Nucleated Red Blood Cells # 0.010^3/ul (0.0-0.0) Sodium Level 141mmol/L (135-144) Potassium Level 4.0mmol/L (3.5-5.1) Chloride Level 104mmol/L (97-110) Carbon Dioxide Level 27mmol/L (21-31) Anion Gap 14 (8-16) Blood Urea Nitrogen 8mg/dl (7-20) Creatinine 0.90mg/dl (0.61-1.24) Glucose Level 90mg/dl (70-220) Calcium Level 9.3mg/dl (8.4-10.2) Phosphorus Level 4.6mg/dl (2.5-4.9) Magnesium Level 1.9mg/dl (1.7-2.5) ANTWON HAMEED Jan 25, 2017 12:04
== END 2017-01-25 14:20 | disposition home or self-care (01) | DRG 348 ==
LOC: FTE 15:38 → MS3 19:48 → REC 01-23 10:30 → MS3 01-23 13:14 → MS2 01-23 18:38
PROVIDERS: ADMIT Internal Medicine; ATTEND Internal Medicine
PROC: 06BY0ZC Excision of Hemorrhoidal Plexus, Open Approach (ICD-10-PCS; principal; 2017-01-23 11:00)
DX: K64.5 Perianal venous thrombosis (principal); K62.5 Hemorrhage of anus and rectum; I10 Essential (primary) hypertension; K62.3 Rectal prolapse; I25.10 Atherosclerotic heart disease of native coronary artery without angina pectoris; F17.210 Nicotine dependence, cigarettes, uncomplicated; Z95.5 Presence of coronary angioplasty implant and graft
CPT/HCPCS: 80048; 80053; 83690; 83735; 84100; 85025; 85610; 85730; 87081; 88302; 96374; 96375; 96376; J0690; J1170; J2175; J2270; J2405; J3010; J7030; J7042